=== PATIENT | male | born 1965 | race Caucasian/White ===

== ENCOUNTER 2023-12-14 14:36 | Observation (INO) | payer BC, SELFPAY ==
[2023-12-14 14:46] VITALS: BP 155/102; PULSE 84; TEMP 37; O2SAT 100; BMI 22.4
[2023-12-14 15:28] LABS: Basophils Percent Auto 0.6 % (0.2-2.0); Eosinophils Absolute Auto 0.1 10^3/uL (0.0-0.7); Eosinophils Percent Auto 2.2 % (0.9-7.0); Hematocrit 41.6 % (42.0-54.0); Immature Granulocytes Abs Auto 0.02 10^3/uL (0.00-0.03); Immature Granulocytes Pct Auto 0.3 % (0.0-0.5); Lymphocytes Absolute Auto 1.5 10^3/uL (1.2-3.8); Lymphocytes Percent Auto 24.6 % (20.5-60.0); Mean Corpuscular HGB Conc 33.7 g/dL (29.9-35.2); Mean Corpuscular Hemoglobin 31.2 pg (25.9-34.0); Mean Corpuscular Volume 92.7 fL (80.0-94.0); Mean Platelet Volume 11.3 fL (9.5-13.5); Monocytes Absolute Auto 0.6 10^3/uL (0.3-0.8); Monocytes Percent Auto 10.1 % (1.7-12.0); Neutrophils Absolute Auto 3.9 10^3/uL (1.4-6.5); Neutrophils Percent Auto 62.2 % (43.0-75.0); Platelet Count 181 10^3/uL (150-450); Red Blood Count 4.49 10^6/uL (4.70-6.10); Red Cell Distribution Width 12.6 % (11.0-15.0); White Blood Count 6.3 10^3/uL (4.0-11.0)
--- NOTE | 2023-12-14 15:29 | CT_ITS ---
[address] [address] Patient Name: EDI MELENDEZ MRN: [id number] date: 1965 Sex: M Assigned Patient Location: ER Current Patient Location: Accession/Order Number: [id number] Exam Date: 12/14/2023 15:25 Report Date: 12/14/2023 15:58 At the request of: BONITA BUSTILLOS Procedure: CT abdomen pelvis wo con EXAMINATION: CT abdomen pelvis wo con HISTORY: pain, kidney stone ; unable to urinate COMPARISON: CT chest 07/08/2013 TECHNIQUE: Axial, Coronal, and Sagittal images were obtained without and/or with IV contrast as indicated by examination type. Dose reduction techniques were achieved by using automated exposure control and/or adjustment of mA and/or kV according to patient size and/or use of iterative reconstruction technique. FINDINGS: LUNG BASES: Curvilinear opacities within posterior right lung base suggestive of rounded atelectasis or round pneumonia. LIVER: No enlargement, atrophy, suspicious density, or significant focal lesion. BILIARY: Nondistended gallbladder. PANCREAS: No lesion, fluid collection, or abnormal duct dilatation. SPLEEN: No enlargement or focal lesion. ADRENALS: No mass or enlargement. KIDNEYS: Mild left-sided versus secondary to an obstructing 5 x 4 x 4 mm stone within distal ureter near the ureterovesical junction. No additional urinary tract calculi. BOWEL/MESENTERY: No visible mass, obstruction, or bowel wall thickening. Normal appendix. AORTA/VASCULAR: No aneurysm or dissection. RETROPERITONEUM: No mass or adenopathy. LYMPH NODES: No adenopathy. URINARY BLADDER: No visible focal wall thickening, lesion, or calculus. PELVIC ORGANS: Slightly prominent, and containing several coarse calcifications. ABDOMINAL WALL: No mass or hernia. BONES: No bony lesion or fracture. OTHER: Negative. CT/CT abdomen pelvis wo con IMPRESSION: 1. Mild left hydronephrosis secondary to an obstructing 5 mm stone near the ureterovesical junction. No additional urinary tract calculi. 2. Stable curvilinear opacities within posterior right lung base since at least 2013 consistent with scarring. Electronically authenticated by: EDSON LOZANO Date: 12/14/2023 15:58
[2023-12-14] MEDS: 0.9 % SODIUM CHLORIDE 1,000 ML 999 ML IV (15:38)
[2023-12-14 15:39] LABS: Anion Gap 11.2; BUN Creatinine Ratio 15.7; Calcium 8.7 mg/dL (8.5-10.1); Carbon Dioxide 28.8 mmol/L (21.0-32.0); Chloride 101 mmol/L (98-107); Estimated GFR (African America >60 (>=60); Estimated GFR (Non-African Ame 52 (>=60); Glucose 89 mg/dL (74-106); Sodium 137 mmol/L (136-145)
[2023-12-14 15:55] LABS: Bilirubin Urine NEGATIVE (NEGATIVE); Blood Urine NEGATIVE (NEGATIVE); Clarity Urine CLEAR (CLEAR); Color Urine YELLOW (YELLOW); Glucose Urine UA NEGATIVE (NEGATIVE); Ketones Urine TRACE mg/dL (NEGATIVE); Leukocyte Esterase Urine NEGATIVE (NEGATIVE); Nitrite Urine NEGATIVE (NEGATIVE); Protein Urine TRACE mg/dL (NEG/TRACE)
[2023-12-14 15:56] LABS: Urine Microscopic Indicated NO
--- NOTE | 2023-12-14 16:23 | ED_ITS ---
HPI HPI - General Adult General Chief complaint: Urogenital-Male Stated complaint: URINATION PROBLEMS Time Seen by Provider: 12/14/23 14:44 Source: patient Mode of arrival: walk-in Limitations: no limitations History of Present Illness HPI narrative: 58-year-old male to the emergency department chief complaint of left-sided flank pain, dysuria, and decreased urination. Patient reports that he was diagnosed with a kidney stone in August at [facility]. He reports he was told that he had a 4 mm stone in the mid ureter. He was given follow-up with urology. He followed up with urology and they told him he will have no trouble passing the stone on his own and does not need intervention. Patient reports that he had a second visit in the beginning of November at [facility] where they reevaluated his pain and was found to still have the stone at the left UVJ. He presents today as the pain and dysuria are keeping him from his job. He reports that his symptoms have been worsening and not improving. He does not believe he has passed the kidney stone. He reports decreased urination. Related Data Home Medications ?Medication ?Instructions ?Recorded ?Confirmed oxycodone-acetaminophen 5 mg-325 1 tab PO Q6H PRN pain 12/14/23 12/14/23 mg tablet tamsulosin 0.4 mg capsule 0.8 mg PO Q24H 12/14/23 12/14/23 Allergies Allergy/AdvReac Type Severity Reaction Status Date / Time No Known Drug Allergies Allergy Verified 12/14/23 14:45 Opioid HPI Opioid Management Most Recent Opioid Data: No Data to Display Review of Systems ROS Status of ROS 10 or more systems reviewed and unremark able except as noted in history and below Exam Narrative Exam Narrative: VITALS: I have reviewed the triage vital signs. GENERAL: Well developed, well appearing adult in no acute distress. NEURO: Alert and oriented. Moves all extremities. Face is symmetric and expressive. EYES: PERRL. No scleral icterus or conjunctival injection. No discharge. HENT: Normocephalic, atraumatic. Hearing is grossly intact. Nares grossly patent and without discharge. Mucous membranes moist. NECK: No JVD. Patient moves neck without restriction. CARDIO: Rhythm regular. Normal rate. No murmur, rub, or gallop. Pulses equal bilaterally in the upper and lower extremity. No lower extremity edema. PULM: Lungs clear to auscultation in all [place]. No wheezes, rales, or rhonchi. No conversational dyspnea. No splinting, stridor, or accessory muscle use. GI/: Abdomen is soft and non-tender. Normoactive bowel sounds. EXTREMITIES: Symmetric muscle bulk. No joint swelling. No clubbing, cyanosis, or deformity. SKIN: Warm and dry. Normal turgor. No rash or lesions appreciated. PSYCH: Mood, affect, and interaction is appropriate to the setting. Constitutional Vital Signs, click to edit/add: Last Vital Signs Temp 98.6 F 12/14/23 14:46 Pulse 84 12/14/23 14:46 Resp 18 12/14/23 14:46 BP 155/102 H 12/14/23 14:46 Pulse Ox 100 12/14/23 14:46 O2 Del Method Room Air 12/14/23 14:46 Course Vital Signs Vital signs: Vital Signs Temperature 98.6 F 12/14/23 14:46 Pulse Rate 84 12/14/23 14:46 Respiratory Rate 18 12/14/23 14:46 Blood Pressure 155/102 H 12/14/23 14:46 Pulse Oximetry 100 12/14/23 14:46 Oxygen Delivery Method Room Air 12/14/23 14:46 Temperature 98.6 F 12/14/23 14:46 Pulse Rate 84 12/14/23 14:46 Respiratory Rate 18 12/14/23 14:46 Blood Pressure 155/102 H 12/14/23 14:46 Pulse Oximetry 100 12/14/23 14:46 Oxygen Delivery Method Room Air 12/14/23 14:46 Medical Decision Making [facility] Narrative Medical decision making narrative: 58-year-old male to the emergency department with chief complaint of left-sided flank pain, known kidney stones, decreased urination. Vitals are stable, the patient is afebrile. I was able to review the patient's previous records from [facility] on 08/10/2023 and 12/01/2023 on [employer]. On 08/10/2023 he had a 4 mm left-sided ureteral stone at the mid ureter with no hydro nephrosis. On 12/01/2023 he had a 4 mm stone at the left UVJ with mild hydronephrosis. His creatinine was 1.13/1.14 at these visits. Decision was made to proceed with repeat imaging and labs. CBC is unremarkable. Urinalysis without evidence of infection. The chemistry does show a mild BALDEMAR today with a creatinine of 1.4. CT scan today shows a 5 mm stone at the left UVJ with hydronephrosis. I discussed with the patient. He would like consultation with urology at this point as he did not believe he can go on any longer with the stone. A call was placed to Dr. Jean the on-call urologist. Dr. Jean asked me to admit the patient. Make him n.p.o. after midnight. Strict straining of urine. Symptom control and he will see the patient tomorrow for procedure. Likely tomorrow afternoon or evening. I did call and discussed with the on-call hospitalist Dr. Grover who accepts the patient to his service. Patient and his are very pleased with this plan. Medical Records Medical records reviewed: Yes I reviewed the patient's medical records Lab Data Lab results reviewed: Yes I reviewed the patient's lab results Labs: Lab Results 12/14/23 12/14/23 Range/Units 15:13 15:45 WBC 6.3 (4.0-11.0) 10^3/uL RBC 4.49 L (4.70-6.10) 10^6/uL Hgb 14.0 (14.0-18.0) g/dL Hct 41.6 L (42.0-54.0) % MCV 92.7 (80.0-94.0) fL MCH 31.2 (25.9-34.0) pg MCHC 33.7 (29.9-35.2) g/dL RDW 12.6 (11.0-15.0) % Plt Count 181 (150-450) 10^3/uL MPV 11.3 (9.5-13.5) fL Neut % (Auto) 62.2 (43.0-75.0) % Lymph % (Auto) 24.6 (20.5-60.0) % [place] % (Auto) 10.1 (1.7-12.0) % Eos % (Auto) 2.2 (0.9-7.0) % Baso % (Auto) 0.6 (0.2-2.0) % Neut # (Auto) 3.9 (1.4-6.5) 10^3/uL Lymph # (Auto) 1.5 (1.2-3.8) 10^3/uL [place] # (Auto) 0.6 (0.3-0.8) 10^3/uL Eos # (Auto) 0.1 (0.0-0.7) 10^3/uL Baso # (Auto) 0.0 (0.0-0.1) 10^3/uL Abs Immat Gran (auto) 0.02 (0.00-0.03) 10^3/uL Imm/Tot Granulo (auto) 0.3 (0.0-0.5) % Sodium 137 (136-145) mmol/L Potassium 4.0 (3.5-5.1) mmol/L Chloride 101 (98-107) mmol/L Carbon Dioxide 28.8 (21.0-32.0) mmol/L Anion Gap 11.2 BUN 22.0 H (7.0-18.0) mg/dL Creatinine 1.40 H (0.70-1.30) mg/dL Est GFR ( Amer) >60 (>=60) Est GFR (Non-Af Amer) 52 L (>=60) BUN/Creatinine Ratio 15.7 Glucose 89 (74-106) mg/dL Calcium 8.7 (8.5-10.1) mg/dL Urine Color Yellow (YELLOW) Urine Clarity Clear (CLEAR) Urine pH 7.0 (5.0-9.0) Ur Specific [place] 1.020 (1.005-1.025) Urine Protein Trace (NEG/TRACE) mg/dL Urine Glucose (UA) Negative (NEGATIVE) mg/dL Urine Ketones Trace A (NEGATIVE) mg/dL Urine Occult Blood Negative (NEGATIVE) Urine Nitrite Negative (NEGATIVE) Urine Bilirubin Negative (NEGATIVE) Urine Urobilinogen 1.0 (0.2-1.0) EU/dL Ur Leukocyte Esterase Negative (NEGATIVE) Imaging Data CT scan - abdomen: Radiologist's impression: ITS Impressions Abdomen/Pelvis CT 12/14/23 15:29 IMPRESSION: 1. Mild left hydronephrosis secondary to an obstructing 5 mm stone near the ureterovesical junction. No additional urinary tract calculi. 2. Stable curvilinear opacities within posterior right lung base since at least 2013 consistent with scarring. Electronically authenticated by: EDSON LOZANO Date: 12/14/2023 15:58 Discharge Plan Discharge Chief Complaint: Urogenital-Male Clinical Impression: Hydronephrosis with renal and ureteral calculus obstruction, Acute kidney injury Patient Disposition: Admitted as Observation Time of Disposition Decision: 17:00 Condition: Good Prescriptions / Home Meds: No Action tamsulosin 0.4 mg capsule 0.8 mg PO Q24H oxycodone-acetaminophen 5-325 mg tablet 1 tab PO Q6H PRN (Reason: pain) Print Language: Greenlandic Referrals: Heriberto Meneses MD [Primary Care Provider] - 1 week
[2023-12-14] MEDS: MORPHINE SULFATE 4 MG/ML VIAL IV (17:09)
[2023-12-14] MEDS: ONDANSETRON PF 4 MG/2 ML VIAL IV (17:09)
[2023-12-14] MEDS: 0.9 % SODIUM CHLORIDE 1,000 ML 100 ML IV (17:10)
[2023-12-14 17:26] VITALS: BMI 23.2
[2023-12-14 17:40] VITALS: BP 167/88; PULSE 62; TEMP 36.2; O2SAT 92
[2023-12-14 20:16] VITALS: O2SAT 99
--- NOTE | 2023-12-14 20:31 | P.HP_ITS ---
HPI H&P: HPI History of Present Illness Chief complaint: URINATION PROBLEMS, Kidney Stone Narrative: 58-year-old male presented to ED with of left-sided flank and suprapubic pain, dysuria, and decreased urination. He also reports associated nausea, and poor PO intake. Denies hematuria. Pain is sharp, severe, 10/10 and spasmodic. Patient reports that he was diagnosed with a kidney stone in August at [facility]. He reports he was told that he had a 4 mm stone in the mid ureter and was followed up as outpatient by Urology. Given the size of of the stone, he was managed conservatively. Patient reports that he had a second visit in the beginning of November at [facility] where they reevaluated his pain and was found to still have the stone at the left UVJ. He has had intermittent symptoms of left flank pain, dysuria and decreased urination. He presented today as his symptoms have been getting worse and more frequent and interfering with his work. Work up in ED revealed obstructing ureteral stone, mild hydroureter, and BALDEMAR. 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 Opioid HPI Opioid Management Most Recent Pain and Opioid Data: Last Pain Scale 5 12/14/23 20:00 Last Pain Assessment 12/14/23 20:00 Last MAR Pain Assessment 12/14/23 17:09 Last ORT Total Score 0 12/14/23 17:26 Last ORT Risk Category Low Risk 12/14/23 17:26 Review of Systems ROS Status of ROS 10 or more systems reviewed and unremark able except as noted in history and below [facility] Social History (Updated 12/14/23 @ 20:38 by Shaikh Reilly MD) Within the past year, how often did you have a drink containing alcohol: monthly or less Within the past year, how many standard drinks containing alcohol did you have on a typical day: 1 or 2 Within the past year, how often did you have six or more drinks on one occasion: never Total score: 0 Score interpretation: A score less than 4 is consistent with normal alcohol consumption. Smoking status: Former smoker Non-prescribed substance use: denies use Highest level of school completed/degree received: high school graduate Meds Home Medications and Allergies Home Medications ?Medication ?Instructions ?Recorded ?Confirmed ?Type tamsulosin 0.4 mg capsule 0.4 mg PO BID 12/14/23 12/14/23 History Allergies Allergy/AdvReac Type Severity Reaction Status Date / Time No Known Drug Allergies Allergy Verified 12/14/23 14:45 Exam Constitutional Vital Signs, click to edit/add: Last Vital Signs Temp 97.2 F L 12/14/23 17:40 Pulse 62 12/14/23 17:40 Resp 18 12/14/23 17:40 BP 167/88 H 12/14/23 17:40 Pulse Ox 92 L 12/14/23 17:40 O2 Del Method Room Air 12/14/23 17:40 Documenting provider has reviewed patient's vital signs: yes Common normals: no apparent distress and oriented x3 General appearance: cooperative HENMT Common normals: normocephalic and head/scalp atraumatic Head and scalp: normocephalic and atraumatic Eye Common normals: conjunctivae normal and no scleral icterus Conjunctiva: conjunctiva(e) normal Respiratory Common normals: normal respiratory effort and clear to auscultation bilaterally Effort & inspection: able to speak in complete sentences Auscultation: clear to auscultation bilaterally Cardio Common normals: regular rate, S1 normal heart sound and S2 normal heart sound Rate: regular rate Heart sounds: S1 normal and S2 normal GI Common normals: Normal to inspection, nondistended, normoactive bowel sounds present, soft to palpation and no hepatosplenomegaly Palpation: soft, tender Details: suprapubic and no hepatosplenomegaly Bladder/kidney exam: CVA tenderness on the left Extremity Common normals: no clubbing, cyanosis or edema Neuro Common normals: oriented x3, moves all extremities and no focal motor deficits Psych Common normals: mental status grossly normal, denies hallucinations, denies homicidal ideation and denies suicidal ideation Results Labs Labs: Short CBC 12/14/23 Range/Units 15:13 WBC 6.3 (4.0-11.0) 10^3/uL Hgb 14.0 (14.0-18.0) g/dL Hct 41.6 L (42.0-54.0) % Plt Count 181 (150-450) 10^3/uL BMP 12/14/23 15:13 Sodium 137 Potassium 4.0 Chloride 101 Carbon Dioxide 28.8 BUN 22.0 H Creatinine 1.40 H Glucose 89 Calcium 8.7 Urine 12/14/23 Range/Units 15:45 Urine Color Yellow (YELLOW) Urine Clarity Clear (CLEAR) Urine pH 7.0 (5.0-9.0) Ur Specific [place] 1.020 (1.005-1.025) Urine Protein Trace (NEG/TRACE) mg/dL Urine Glucose (UA) Negative (NEGATIVE) mg/dL Assessment and Plan Assessment and Plan (1) Ureteral stone with hydronephrosis: Assessment and Plan: 5 mm ureteral stone at UPV junction with hydroureter. Poorly controlled and ongoing symptoms for past 4-5 months now. Urology consulted. Patient made NPO after MN for cystoscopy/ureteral stent placement. C/w IVF, anti emetics and combination of oral/IV narcotics for pain. C/w flomax. Empirical treatment with Rocephin. (2) Acute kidney injury: Assessment and Plan: obstructive uropathy from ureteral stone. On IVF. Monitor UO. Scheduled for OR tomorrow.
[2023-12-14] MEDS: TAMSULOSIN HCL 0.4 MG CAPSULE PO (21:14)
[2023-12-14] MEDS: OXYCODONE HCL 5 MG TABLET PO (21:14)
[2023-12-14] MEDS: ENOXAPARIN SODIUM 40 MG/0.4 ML SYRINGE SUBQ (21:14)
[2023-12-14] MEDS: CEFTRIAXONE 1,000 MG in 0.9 % SODIUM CHLORIDE 50 ML 100 MG IV (21:14)
[2023-12-15] VITALS (14 sets, daily range): BP systolic 129–165; BP diastolic 76–98; PULSE 63–110; TEMP 36.4–36.8; O2SAT 92–98
[2023-12-15] MEDS: LACTATED RINGER'S SOLUTION 1,000 ML 125 ML IV ×2 (02:46→10:51)
[2023-12-15] MEDS: MORPHINE SULFATE 2 MG/ML SYRINGE IV (02:46)
[2023-12-15 06:22] LABS: Basophils Absolute Auto 0.1 10^3/uL (0.0-0.1); Basophils Percent Auto 0.7 % (0.2-2.0); Eosinophils Absolute Auto 0.3 10^3/uL (0.0-0.7); Eosinophils Percent Auto 2.5 % (0.9-7.0); Hematocrit 39.4 % (42.0-54.0); Immature Granulocytes Abs Auto 0.03 10^3/uL (0.00-0.03); Immature Granulocytes Pct Auto 0.3 % (0.0-0.5); Lymphocytes Absolute Auto 1.4 10^3/uL (1.2-3.8); Lymphocytes Percent Auto 13.1 % (20.5-60.0); Mean Corpuscular Hemoglobin 30.9 pg (25.9-34.0); Mean Corpuscular Volume 93.6 fL (80.0-94.0); Monocytes Percent Auto 9.6 % (1.7-12.0); Neutrophils Absolute Auto 7.7 10^3/uL (1.4-6.5); Neutrophils Percent Auto 73.8 % (43.0-75.0); Platelet Count 157 10^3/uL (150-450); Red Blood Count 4.21 10^6/uL (4.70-6.10); Red Cell Distribution Width 12.8 % (11.0-15.0); White Blood Count 10.4 10^3/uL (4.0-11.0)
[2023-12-15 06:52] LABS: Alanine Aminotransferase 17 U/L (16-63); Albumin Globulin Ratio 1.1; Albumin Level 2.9 g/dL (3.4-5.0); Alkaline Phosphatase 63 U/L (46-116); Anion Gap 9.2; Aspartate Amino Transferase 15 U/L (15-37); BUN Creatinine Ratio 12.2; Bilirubin Total 0.4 mg/dL (0.2-1.0); Calcium 8.3 mg/dL (8.5-10.1); Carbon Dioxide 30.1 mmol/L (21.0-32.0); Chloride 105 mmol/L (98-107); Estimated GFR (African America 50 (>=60); Estimated GFR (Non-African Ame 41 (>=60); Globulin 2.7 g/dL; Glucose 111 mg/dL (74-106); Potassium 4.3 mmol/L (3.5-5.1); Sodium 140 mmol/L (136-145); Total Protein 5.6 g/dL (6.4-8.2)
[2023-12-15] MEDS: OXYCODONE HCL 5 MG TABLET PO (06:53)
[2023-12-15] MEDS: TAMSULOSIN HCL 0.4 MG CAPSULE PO (08:12)
--- NOTE | 2023-12-15 08:26 | P.PN_ITS ---
Progress Note: Subjective Subjective Interval history: No side effects overnight from the pain medication. Pain well-controlled currently. Exam Constitutional Vital Signs, click to edit/add: Last Vital Signs Temp 98.1 F 12/15/23 07:25 Pulse 68 12/15/23 07:25 Resp 17 12/15/23 07:25 BP 154/97 H 12/15/23 07:25 Pulse Ox 96 12/15/23 07:25 O2 Del Method Room Air 12/15/23 07:25 Documenting provider has reviewed patient's vital signs: yes Common normals: no apparent distress Chest Common normals: inspection of chest normal Respiratory Common normals: normal respiratory effort Cardio Common normals: regular rate GI Common normals: Normal to inspection, nondistended, normoactive bowel sounds present and soft to palpation Back & Pelvis Common normals: CVA tenderness (Left Sided) Progress Note: Objective Labs Labs: Short CBC 12/14/23 12/15/23 Range/Units 15:13 06:04 WBC 6.3 10.4 (4.0-11.0) 10^3/uL Hgb 14.0 13.0 L (14.0-18.0) g/dL Hct 41.6 L 39.4 L (42.0-54.0) % Plt Count 181 157 (150-450) 10^3/uL BMP 12/14/23 12/15/23 15:13 06:04 Sodium 137 140 Potassium 4.0 4.3 Chloride 101 105 Carbon Dioxide 28.8 30.1 BUN 22.0 H 21.0 H Creatinine 1.40 H 1.72 H Glucose 89 111 H Calcium 8.7 8.3 L Liver Function 12/15/23 Range/Units 06:04 Total Bilirubin 0.4 (0.2-1.0) mg/dL AST 15 (15-37) U/L ALT 17 (16-63) U/L Alkaline Phosphatase 63 (46-116) U/L Albumin 2.9 L (3.4-5.0) g/dL Urine 12/14/23 Range/Units 15:45 Urine Color Yellow (YELLOW) Urine Clarity Clear (CLEAR) Urine pH 7.0 (5.0-9.0) Ur Specific [place] 1.020 (1.005-1.025) Urine Protein Trace (NEG/TRACE) mg/dL Urine Glucose (UA) Negative (NEGATIVE) mg/dL Progress Note: A&P Assessment and Plan (1) Ureteral stone with hydronephrosis: Assessment and Plan: Plan is for stent placement today. After stent placed, if patient is hemodynamically stable and no further interventions recommended by urology, patient will be okay for discharge to home. Follow-up with me in the office either later this week or next. Follow-up with urology per protocol. Medic ations see list (2) Acute kidney injury:
--- NOTE | 2023-12-15 14:26 | PM.CN ---
Consult Note: HPI Data of Consult Consult date: 12/15/23 Requesting Physician: Calvin Araujo MD Primary Care Provider: Calvin Araujo MD Consult Narrative Reason for consult: left UVJ stone and BALDEMAR Narrative: 58 year old male admitted with severe left flank and suprapubic pain secondary to a 5 mm left UVJ stone with mild hydronephrosis found on CT scan. Labs notable for BALDEMAR. UA, WBC and vitals wnl. Pt was diagnosed with a 4 mm left mid ureteral stone in August at [facility], managed conservatively, at the [facility] since November after last re-evaluation. Presented to ER last night due to severity in pain. 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 He has had intermittent symptoms of nausea, flank pain, dysuria and decreased urination. Did not follow up with [place] urologist as he thought he'd be able to pass it. cc:: CC: Calvin Araujo MD Review of Systems ROS Status of ROS 10 or more systems reviewed and unremarkable except as noted in history and below Constitutional Denies: fever or chills Gastrointestinal Reports: nausea; Denies: vomiting PFSH PFSH Social History Within the past year, how often did you have a drink containing alcohol: monthly or less Within the past year, how many standard drinks containing alcohol did you have on a typical day: 1 or 2 Within the past year, how often did you have six or more drinks on one occasion: never Total score: 0 Score interpretation: A score less than 4 is consistent with normal alcohol consumption. Smoking status: Former smoker Non-prescribed substance use: denies use Highest level of school completed/degree received: high school graduate Meds Home Medications and Allergies Home Medications ?Medication ?Instructions ?Recorded ?Confirmed ?Type tamsulosin 0.4 mg capsule 0.4 mg PO BID 12/14/23 12/14/23 History Allergies Allergy/AdvReac Type Severity Reaction Status Date / Time No Known Drug Allergies Allergy Verified 12/14/23 14:45 Exam Narrative Exam Narrative: No acute distress, appears nontoxic Nonlabored respirations, symmetric chest rise, on room air Normal rate and rhythm, no peripheral edema Non tender, non distended Left CVA tenderness to palpation, no right CVA tenderness to palpation Moves all extremities, no deformities Alert and oriented x 4, no acute focal deficits Skin dry, intact Appropriate, cooperative Constitutional Vital Signs, click to edit/add: Last Vital Signs Temp 97.8 F 12/15/23 13:55 Pulse 67 12/15/23 13:55 Resp 15 12/15/23 13:55 BP 135/81 12/15/23 13:55 Pulse Ox 95 12/15/23 13:55 O2 Del Method Room Air 12/15/23 11:35 Results Labs Labs: Short CBC 12/14/23 12/15/23 Range/Units 15:13 06:04 WBC 6.3 10.4 (4.0-11.0) 10^3/uL Hgb 14.0 13.0 L (14.0-18.0) g/dL Hct 41.6 L 39.4 L (42.0-54.0) % Plt Count 181 157 (150-450) 10^3/uL BMP 12/14/23 12/15/23 15:13 06:04 Sodium 137 140 Potassium 4.0 4.3 Chloride 101 105 Carbon Dioxide 28.8 30.1 BUN 22.0 H 21.0 H Creatinine 1.40 H 1.72 H Glucose 89 111 H Calcium 8.7 8.3 L Liver Function 12/15/23 Range/Units 06:04 Total Bilirubin 0.4 (0.2-1.0) mg/dL AST 15 (15-37) U/L ALT 17 (16-63) U/L Alkaline Phosphatase 63 (46-116) U/L Albumin 2.9 L (3.4-5.0) g/dL Urine 12/14/23 Range/Units 15:45 Urine Color Yellow (YELLOW) Urine Clarity Clear (CLEAR) Urine pH 7.0 (5.0-9.0) Ur Specific [place] 1.020 (1.005-1.025) Urine Protein Trace (NEG/TRACE) mg/dL Urine Glucose (UA) Negative (NEGATIVE) mg/dL Additional Findings Additional findings: Patient Name: EDI MELENDEZ MRN: [id number] date: 1965 Sex: M Assigned Patient Location: ER Current Patient Location: ER Accession/Order Number: [id number] Exam Date: 12/14/2023 15:25 Report Date: 12/14/2023 15:58 At the request of: BONITA BUSTILLOS Procedure: CT abdomen pelvis wo con EXAMINATION: CT abdomen pelvis wo con HISTORY: pain, kidney stone ; unable to urinate COMPARISON: CT chest 07/08/2013 TECHNIQUE: Axial, Coronal, and Sagittal images were obtained without and/or with IV contrast as indicated by examination type. Dose reduction techniques were achieved by using automated exposure control and/or adjustment of mA and/or kV according to patient size and/or use of iterative reconstruction technique. FINDINGS: LUNG BASES: Curvilinear opacities within posterior right lung base suggestive of rounded atelectasis or round pneumonia. LIVER: No enlargement, atrophy, suspicious density, or significant focal lesion. BILIARY: Nondistended gallbladder. PANCREAS: No lesion, fluid collection, or abnormal duct dilatation. SPLEEN: No enlargement or focal lesion. ADRENALS: No mass or enlargement. KIDNEYS: Mild left-sided versus secondary to an obstructing 5 x 4 x 4 mm stone within distal ureter near the ureterovesical junction. No additional urinary tract calculi. BOWEL/MESENTERY: No visible mass, obstruction, or bowel wall thickening. Normal appendix. AORTA/VASCULAR: No aneurysm or dissection. RETROPERITONEUM: No mass or adenopathy. LYMPH NODES: No adenopathy. URINARY BLADDER: No visible focal wall thickening, lesion, or calculus. PELVIC ORGANS: Slightly prominent, and containing several coarse calcifications. ABDOMINAL WALL: No mass or hernia. BONES: No bony lesion or fracture. OTHER: Negative. CT/CT abdomen pelvis wo con IMPRESSION: 1. Mild left hydronephrosis secondary to an obstructing 5 mm stone near the ureterovesical junction. No additional urinary tract calculi. 2. Stable curvilinear opacities within posterior right lung base since at least 2013 consistent with scarring. Electronically authenticated by: EDSON LOZANO Date: 12/14/2023 15:58 Assessment and Plan Assessment and Plan (1) Ureteral stone with hydronephrosis: (2) Acute kidney injury: Plan 58 year old male admitted with severe left flank and suprapubic pain secondary to a 5 mm left UVJ stone with mild hydronephrosis found on CT scan, failing medical expulsive therapy since August. After discussion of risks/benefits of management options, patient elected to proceed with cystoscopy, left retrograde pyelogram, ureteroscopy with laser lithotripsy, stone extraction, stent placement under general anesthesia. Risks were discussed including but not limited to bleeding, pain, infection, damage to surrounding structures, inability to treat the stone/place a stent, and need for additional procedures. The patient understands the stent is not permanent and needs to be removed or exchanged within 3 months to prevent encrustation, infection, invasive procedures and/or permanent renal damage.
--- NOTE | 2023-12-15 15:24 | P.URON_ITS ---
Urology Surgery Operative Note Operative Note Procedure Date: 12/15/23 Time Out Performed: yes Pre-op Diagnosis: 1. Left distal ureteral stone with hydronephrosis 2. Acute renal injury Post-op Diagnosis: other (1. Left distal ureteral stone 2. Acute renal injury) Procedures performed: Cystoscopy, left retrograde pyelogram, ureteroscopy laser lithotripsy/stone extraction, stent placement Anesthesia: General-LMA (Dr. Kennedy) Primary Surgeon: Kailee Pena Complications: none Estimated blood loss (mL): 0 Findings: Mild bilobar prostatic hypertrophy with elevated bladder neck. 1+ trabeculated bladder 5 mm left ureterovesical junction stone successfully lithotripsied and removed. Tight UO, stent placed. No hydroureteronephrosis. Specimens: left ureteral stone Drains: 6Fr x 22-32 cm JJ left ureteral stent Incision: none Indications for Procedures: 58 year old male admitted from the ER with severe left flank and suprapubic pain secondary to a 5 mm left UVJ stone with mild hydronephrosis found on CT scan with acute renal injury. 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 After discussion of risks/benefits of management options, patient elected to proceed with cystoscopy, left retrograde pyelogram, ureteroscopy with laser lithotripsy, stone extraction, stent placement under general anesthesia. Risks were discussed including but not limited to bleeding, pain, infection, damage to surrounding structures, inability to treat the stone/place a stent, and need for additional procedures. The patient understands the stent is not permanent and needs to be removed or exchanged within 3 months to prevent encrustation, infection, invasive procedures and/or permanent renal damage. Detailed description of Procedure: After informed consent was obtained, the patient was brought to the operating room and transferred onto the operating table in supine position. Sequential compression devices were placed on bilateral lower extremities. The patient received the appropriate dose of preoperative IV antibiotics and general ane sthesia LMA was induced. They were positioned in modified dorsolithotomy with the appropriate pressure points padded, prepped, and draped in the usual sterile fashion for this procedure. An operative safety timeout was performed confirming the patient's identity, laterality and procedure, and all present agreed to proceed. Radiopaque distal left ureteral stone noted on fluoroscopy. I began by inserting a 22 [place] rigid cystoscope with 30 degree lens into the patient's urethra and bladder without difficulty. There were no bladder tumors, lesions, stones or foreign bodies. Bilateral ureteral orifices were orthotopic and patent. I turned my attention to the left ureteral orifice and insertion of a Sensor wire was attempted, however unable to bypass stone. Next a semirigid ureteroscope was inserted into the UO and carefully manipulated and twisted around the stone to insert the wire, advanced up to the renal pelvis confirmed on fluoroscopy. A 275 ?m holmium laser fiber was used to break the stone into fragments which were then removed with a 1.9 nitinol basket. After the stone was adequately treated, ureteroscopy to the proximal ureter was performed confirming no significant residual stones or fragments remained. Contrast was injected noting no filling defects or extravasation, no hydronephrosis of bifid system. Pull down ureteroscopy was performed confirming no stones remained in the ureter. The wire was backloaded through the cystoscope and 6Fr x 22-32cm JJ variable length ureteral stent was advanced over the wire, noting adequate curl in the renal pelvis and bladder on fluoroscopic and direct visualization. The bladder was drained, stones retrieved and bladder inspected one final time to ensure adequate position of stent and no undue trauma to the bladder was done. The stones were sent for pathology and the cystoscope was removed. The patient tolerated the procedure well without complication. The patient was awakened from anesthesia and sent to PACU in stable condition. Plan: Return to floor. Stable for discharge home if no post op fevers and pain controlled. Discharge home with stent pain medications. Follow up for in-office cystoscopy, stent removal in 1-2 weeks given prolonged ureteral stone Other Provider present: No Post Operative care instructions: See discharge instructions Attending Doc Confirm Attending Attestation: Yes
[2023-12-15] MEDS: IOHEXOL 300 MG/ML - 50 ML BTL INJ (16:09)
[2023-12-15] MEDS: LACTATED RINGER'S SOLUTION 1,000 ML 50 ML IV (16:34)
--- NOTE | 2023-12-15 17:02 | PC.NURSE ---
Returns to room from or. Awake and oriented x 3. Stands at side of bed to void.
--- NOTE | 2023-12-16 13:37 | CM.DCFOLLOWU ---
1st attempt 12/16/23
--- NOTE | 2023-12-16 14:24 | CM.DCFOLLOWU ---
Pt called back and spoke with Rosa Kelley and pt is doing well at home.
== END 2023-12-15 18:37 | disposition home or self-care (01) ==
LOC: ER 17:01 → MS 17:25
PROVIDERS: Internal Medicine; Urology; Admitting Provider Family Medicine; Emergency Provider Student in an Organized Health Care Education/Training Program; PCP Family Medicine; Visit Provider Family Medicine
PROC: (CPT 918; principal; 2023-12-15 14:10)
DX: N13.2 Hydronephrosis with renal and ureteral calculous obstruction (principal); N17.9 Acute kidney failure, unspecified; Z87.891 Personal history of nicotine dependence; N40.0 Benign prostatic hyperplasia without lower urinary tract symptoms
CPT/HCPCS: 52356; 36415; 74176; 74420; 80048; 80053; 81003; 82365; 85025; 94761; 96365; 96366; 96372; 96375; 96376; 99285; 99999; G0378; J0696; J1100; J1650; J2250; J2270; J2405; J2704; J3010; Q9967